=== PATIENT | female | born 1945 | race Asian ===

== ENCOUNTER → 2018-07-16 | Outpatient (CLI) | payer MEDICARE, OTHER ==
[~2018-07-16] MED LIST: ASPIRIN; DIPH-654 PO; ESOM20CA31 PO; HYDR-3965 PO; METO50 PO; NIFE60TA21 PO; TRAMADOL; VITAMIN C; VITAMIN D3; VITAMIN E
== END | disposition home or self-care (01) ==
LOC: RADPV 08:51
PROVIDERS: ATTEND Family Medicine
DX: S92.355A Nondisplaced fracture of fifth metatarsal bone, left foot, initial encounter for closed fracture (principal); M19.072 Primary osteoarthritis, left ankle and foot; M77.32 Calcaneal spur, left foot; M19.012 Primary osteoarthritis, left shoulder; M16.0 Bilateral primary osteoarthritis of hip; M47.816 Spondylosis without myelopathy or radiculopathy, lumbar region; M47.817 Spondylosis without myelopathy or radiculopathy, lumbosacral region; X58.XXXA Exposure to other specified factors, initial encounter; Y93.89 Activity, other specified; Y92.89 Other specified places as the place of occurrence of the external cause; Y99.8 Other external cause status
CPT/HCPCS: 72100; 73503

== ENCOUNTER → 2018-07-31 | Outpatient (CLI) | payer MEDICARE, OTHER | END | disposition home or self-care (01) | LOC: RADPV 07:53 | PROVIDERS: ATTEND Family Medicine | DX: M79.605 Pain in left leg (principal) | CPT/HCPCS: 93925; 93970 ==

== ENCOUNTER 2020-03-02 06:08 | Day surgery (SDC) | payer MEDICARE, OTHER ==
[2020-03-01 10:12] LABS: COVID AG,FIA SOURCE NASOPHARYNGEAL
[~2020-03-02] VITALS: Ht 154.9 cm; Wt 63.6 kg
[~2020-03-02 06:08] MED LIST changes: +ACET-3407 PO; +ASCO500 PO; +ASPI-1111 PO; -ASPIRIN; +CHOL100018 PO; +DICL2.5D8 OU; -DIPH-654 PO; +FURO20TA4 PO; -HYDR-3965 PO; +LIDO700A15 TP; +MOXIFLOXACIN HCL 0.5% 3 ML OPHTHALMIC SOLUTION ONE; -NIFE60TA21 PO; +NIFE60TA81 PO; +PHENYLEPHRINE HCL 2.5% 2 ML OPHTHALMIC SOLUTION ONE; +RINGERS SOLUTION,LACTATED 500 ML IV ONE; +TRAM50TA4 PO; -TRAMADOL; +TROPICAMIDE 1% 2 ML OPHTHALMIC SOLUTION ONE; +VITA100012 PO; -VITAMIN C; -VITAMIN D3; -VITAMIN E
[2020-03-02] MEDS ORDERED: POVIDONE-IODINE 10% 15 ML SOLUTION UD TP ONE (06:09)
[2020-03-02] MEDS ORDERED: BALANCED SALT 15 ML OPHTHALMIC IRRIG.SOLN OS ONE (06:09)
[2020-03-02] MEDS ORDERED: EPINEPHrine 1:1,000 [1 MG/ML] AMP IM ONE (06:09)
[2020-03-02] MEDS ORDERED: MIDAZOLAM HCL 2 MG/2 ML VIAL IVP ONE (06:09)
[2020-03-02] MEDS ORDERED: HYALURONATE SOD/CHONDROITIN SOD 0.5 ML VIAL IO ONE (06:09)
[2020-03-02] MEDS ORDERED: FentaNYL CITRATE-PF 100 MCG/2 ML VIAL IVP ONE (06:09)
[2020-03-02] MEDS ORDERED: HYALURONATE SODIUM 12 MG/ML 0.8 ML SYRINGE IO ONE (06:09)
[2020-03-02] MEDS ORDERED: KETOROLAC TROMETHAMINE 0.5% 5 ML OPHTHALMIC SOLUTION OS SCH (06:30)
[2020-03-02] MEDS: TROPICAMIDE 1% 2 ML OPHTHALMIC SOLUTION OS SCH ×3 (06:36→06:48)
[2020-03-02] MEDS: PHENYLEPHRINE HCL 2.5% 2 ML OPHTHALMIC SOLUTION OS SCH ×3 (06:36→06:48)
[2020-03-02] MEDS: MOXIFLOXACIN HCL 0.5% 3 ML OPHTHALMIC SOLUTION OS SCH ×3 (06:36→06:48)
== END 2020-03-02 10:10 | disposition home or self-care (01) ==
LOC: SURGERY 06:08
PROVIDERS: ATTEND Ophthalmology
DX: H25.12 Age-related nuclear cataract, left eye (principal); Z79.899 Other long term (current) drug therapy; I10 Essential (primary) hypertension; Z98.890 Other specified postprocedural states
CPT/HCPCS: 66984; 87426; 93005; C9803; J0171; J2250; J3010; J3490; J7120; V2632

== ENCOUNTER 2020-03-16 05:44 | Day surgery (SDC) | payer MEDICARE, OTHER ==
[2020-03-14 10:20] LABS: COVID AG,FIA SOURCE NASOPHARYNGEAL
[~2020-03-16] VITALS: Ht 154.9 cm; Wt 63.3 kg
[~2020-03-16 05:44] MED LIST changes: +KETOROLAC TROMETHAMINE 0.5% 5 ML OPHTHALMIC SOLUTION ONE
[2020-03-16] MEDS ORDERED: EPINEPHrine 1:1,000 [1 MG/ML] AMP ET ONE (05:45)
[2020-03-16] MEDS ORDERED: TETRACAINE HCL VISCOUS 0.5% 5 ML OPHTHALMIC SOLUTION OU ONE (05:45)
[2020-03-16] MEDS ORDERED: BALANCED SALT 15 ML OPHTHALMIC IRRIG.SOLN IO ONE (05:45)
[2020-03-16] MEDS ORDERED: MIDAZOLAM HCL 2 MG/2 ML VIAL IVP ONE (05:45)
[2020-03-16] MEDS ORDERED: HYALURONATE SODIUM 12 MG/ML 0.8 ML SYRINGE IO ONE (05:45)
[2020-03-16] MEDS ORDERED: POVIDONE-IODINE 10% 15 ML SOLUTION UD TP ONE (05:45)
[2020-03-16] MEDS ORDERED: FentaNYL CITRATE-PF 100 MCG/2 ML VIAL IVP ONE (05:45)
[2020-03-16] MEDS ORDERED: LIDOCAINE/PF 1% 2 ML VIAL IM ONE (05:45)
[2020-03-16] MEDS ORDERED: HYALURONATE SOD/CHONDROITIN SOD 0.5 ML VIAL IO ONE (05:45)
[2020-03-16] MEDS: TROPICAMIDE 1% 2 ML OPHTHALMIC SOLUTION OD SCH ×3 (06:31→06:51)
[2020-03-16] MEDS: MOXIFLOXACIN HCL 0.5% 3 ML OPHTHALMIC SOLUTION OD SCH ×3 (06:31→06:51)
[2020-03-16] MEDS: PHENYLEPHRINE HCL 2.5% 2 ML OPHTHALMIC SOLUTION OD SCH ×3 (06:32→06:51)
[2020-03-16] MEDS: KETOROLAC TROMETHAMINE 0.5% 5 ML OPHTHALMIC SOLUTION OD SCH ×3 (06:32→06:51)
[2020-03-16] MEDS ORDERED: ONDANSETRON HCL 4 MG TABLET PO ONE (09:30)
== END 2020-03-16 09:30 | disposition home or self-care (01) ==
LOC: SURGERY 05:44
PROVIDERS: ATTEND Ophthalmology
DX: H25.11 Age-related nuclear cataract, right eye (principal); I10 Essential (primary) hypertension; Z79.899 Other long term (current) drug therapy; Z20.828 Contact with and (suspected) exposure to other viral communicable diseases
CPT/HCPCS: 66984; 87426; 93005; C9803; J0171; J2250; J3010; J3490 ×2; J7120; V2632; Q0162

== ENCOUNTER → 2020-07-19 | Outpatient (CLI) | payer MEDICARE, OTHER ==
[~2020-07-19] MED LIST changes: -ASPI-1111 PO; +ASPI-1444 PO; -CHOL100018 PO; +CHOL100044 PO; -KETOROLAC TROMETHAMINE 0.5% 5 ML OPHTHALMIC SOLUTION ONE; -MOXIFLOXACIN HCL 0.5% 3 ML OPHTHALMIC SOLUTION ONE; -PHENYLEPHRINE HCL 2.5% 2 ML OPHTHALMIC SOLUTION ONE; -RINGERS SOLUTION,LACTATED 500 ML IV ONE; -TROPICAMIDE 1% 2 ML OPHTHALMIC SOLUTION ONE
== END | disposition home or self-care (01) ==
LOC: RADPV 09:54
PROVIDERS: ATTEND Family Medicine
DX: I80.293 Phlebitis and thrombophlebitis of other deep vessels of lower extremity, bilateral (principal)
CPT/HCPCS: 93925; 93970

== ENCOUNTER → 2020-09-12 | Outpatient (CLI) | payer MEDICARE, OTHER | END | disposition home or self-care (01) | LOC: RADMN 13:50 | PROVIDERS: ATTEND Family Medicine | DX: S83.231A Complex tear of medial meniscus, current injury, right knee, initial encounter (principal); S83.281A Other tear of lateral meniscus, current injury, right knee, initial encounter; S82.091A Other fracture of right patella, initial encounter for closed fracture; M25.461 Effusion, right knee; X58.XXXA Exposure to other specified factors, initial encounter; Y93.89 Activity, other specified; Y92.89 Other specified places as the place of occurrence of the external cause; Y99.8 Other external cause status | CPT/HCPCS: 73721 ==

== ENCOUNTER → 2021-03-06 | Outpatient (CLI) | payer MEDICARE, OTHER ==
[~2021-03-06] MED LIST changes: +CHOL-35 PO; -CHOL100044 PO
== END | disposition home or self-care (01) ==
LOC: RADPV 08:17
PROVIDERS: ATTEND Family Medicine
DX: M25.561 Pain in right knee (principal); M25.562 Pain in left knee
CPT/HCPCS: 93925; 93970

== ENCOUNTER → 2022-10-02 | Outpatient (CLI) | payer MEDICARE, OTHER ==
[~2022-10-02] MED LIST changes: -CHOL-35 PO; +CHOL25TA4 PO; +DICL2.5D7 OU; -DICL2.5D8 OU; +TRAM-559 PO; -TRAM50TA4 PO
== END | disposition home or self-care (01) ==
LOC: RADMN 12:23
PROVIDERS: ATTEND Family Medicine
DX: Z01.818 Encounter for other preprocedural examination (principal); M47.814 Spondylosis without myelopathy or radiculopathy, thoracic region
CPT/HCPCS: 71046

== ENCOUNTER → 2023-08-13 | Outpatient (CLI) | payer MEDICARE, OTHER ==
[~2023-08-13] MED LIST changes: +ACET-2247 PO; -ACET-3407 PO; -ASCO500 PO; +BISA10SU11 PR; -CHOL25TA4 PO; +CYCL-448 PO; +DAPT500V8 IV; -DICL2.5D7 OU; +DIPH-543 PO; -ESOM20CA31 PO; +GABA-1181 PO; +HEPA500018 SQ; +HYDR-4723 PO; +LACT1TAB20 PO; +LORA10TA7 PO; +LOSA-381 PO; +MAGN-169 PO; +MULT-413 PO; -NIFE60TA81 PO; +OMEP20 PO; +POLY17PO47 PO; +SENN-376 PO; +SPIR-37 PO; -TRAM-559 PO; -VITA100012 PO; +[UNRECOGNIZED DRUG - CODE] PO
[2023-08-13 09:41] LABS: BASOPHILS % (AUTO) 0.8 % (0.0-2.0); EOSINOPHILS % (AUTO) 3.5 % (1.0-6.0); HEMATOCRIT 30.4 % (36-46); LYMPHOCYTES # (AUTO) 1.2 K/uL (1.0-4.8); LYMPHOCYTES % (AUTO) 25.4 % (22.0-44.0); MEAN CORPUSCULAR VOLUME 97 fL (80-100); MONOCYTES # (AUTO) 0.5 K/uL (0.1-1.0); MONOCYTES % (AUTO) 9.3 % (2.0-9.0); PLATELET COUNT (AUTO) 278 K/uL (150-450); RED BLOOD CELL COUNT(AUTO) 3.13 MIL/uL (4.00-5.20); RED CELL DISTRIBUTION WIDTH 16.6 % (11.5-14.5); WHITE BLOOD COUNT (AUTO) 4.9 K/uL (4.5-11.0)
[2023-08-13 10:04] LABS: HEMOGLOBIN A1C 5.3 % (3.8-5.6)
[2023-08-13 10:05] LABS: ALANINE AMINOTRANSFERASE 16 U/L (12-78); ALBUMIN 2.9 g/dL (3.4-5.0); ALKALINE PHOSPHATASE 116 U/L (46-116); ANION GAP 8 mmol/L (8-16); ASPARTATE AMINOTRANSFERASE 23 U/L (15-37); BILIRUBIN,TOTAL 0.3 mg/dL (0.1-1.0); C-REACTIVE PROTEIN QUANT 0.51 mg/dL (0.00-0.30); CALCIUM, TOTAL 8.7 mg/dL (8.8-10.5); CARBON DIOXIDE 27 mmol/L (22-29); CHLORIDE 107 mmol/L (98-107); CHOLESTEROL 192 mg/dL (131-200); CREATININE 0.96 mg/dL (0.60-1.30); GLOMERULAR FILTR. RATE CALC 57 mL/min (>60); GLUCOSE,RANDOM 104 mg/dL (70-110); HDL CHOLESTEROL 65 mg/dL (40-60); LDL CHOL (CALC.) 95 mg/dL (0-130); POTASSIUM 4.3 mmol/L (3.5-5.1); SODIUM SERUM 142 mmol/L (136-145); THYROID STIMULATING HORMONE 2.89 uIU/mL (0.36-3.74); TOTAL PROTEIN, SERUM 7.4 g/dL (6.4-8.2); TRIGLYCERIDES 158 mg/dL (15-150); UREA NITROGEN, BLOOD 19 mg/dL (7-18)
[2023-08-13 10:16] LABS: URIC ACID 5.9 mg/dL (2.6-7.2)
[2023-08-13 10:43] LABS: ERYTHROCYTE SEDIMENTATION RATE 54 MM/HR (0-30)
== END | disposition home or self-care (01) ==
LOC: LABMN 09:09
PROVIDERS: ATTEND Family Medicine
DX: I10 Essential (primary) hypertension (principal); E78.5 Hyperlipidemia, unspecified; D64.9 Anemia, unspecified; R73.09 Other abnormal glucose; E66.9 Obesity, unspecified; Z86.19 Personal history of other infectious and parasitic diseases
CPT/HCPCS: 80053; 80061; 83036; 83605; 84443; 84550; 85025; 85651; 86140

== ENCOUNTER → 2023-09-26 | Outpatient (CLI) | payer MEDICARE, OTHER ==
[~2023-09-26] MED LIST changes: +HYDR-4062 PO; -HYDR-4723 PO
[2023-09-26 14:21] LABS: VITAMIN B12 LEVEL 740 pg/mL (211-911)
[2023-09-26 14:55] LABS: FOLATE SERUM > 24.0 ng/mL (5.4-)
== END | disposition home or self-care (01) ==
LOC: LABMN 13:20
PROVIDERS: ATTEND Family Medicine
DX: F03.90 Unspecified dementia, unspecified severity, without behavioral disturbance, psychotic disturbance, mood disturbance, and anxiety (principal)
CPT/HCPCS: 82607; 82746; 86592

== ENCOUNTER → 2023-12-25 | Outpatient (CLI) | payer MEDICARE, OTHER ==
[2023-12-25 15:11] LABS: BASOPHILS % (AUTO) 0.8 % (0.0-2.0); EOSINOPHILS % (AUTO) 5.5 % (1.0-6.0); HEMATOCRIT 32.1 % (36-46); HEMOGLOBIN 10.5 g/dL (12.0-16.0); LYMPHOCYTES # (AUTO) 1.6 K/uL (1.0-4.8); MEAN CORPUSCULAR HEMOGLOBIN 31.3 pg (26.0-34.0); MEAN CORPUSCULAR HGB CONC 32.7 G/dL (31.0-37.0); MEAN CORPUSCULAR VOLUME 96 fL (80-100); MONOCYTES # (AUTO) 0.4 K/uL (0.1-1.0); MONOCYTES % (AUTO) 10.4 % (2.0-9.0); NEUTROPHILS # (AUTO) 1.3 K/uL (1.8-7.7); NEUTROPHILS % (AUTO) 36.3 % (40.0-70.0); PLATELET COUNT (AUTO) 193 K/uL (150-450); RED BLOOD CELL COUNT(AUTO) 3.35 MIL/uL (4.00-5.20); RED CELL DISTRIBUTION WIDTH 15.2 % (11.5-14.5); WHITE BLOOD COUNT (AUTO) 3.5 K/uL (4.5-11.0)
[2023-12-25 15:40] LABS: ALBUMIN 3.6 g/dL (3.4-5.0); BILIRUBIN,TOTAL 0.5 mg/dL (0.1-1.0); CALCIUM, TOTAL 8.8 mg/dL (8.8-10.5); CREATININE 1.1 mg/dL (0.60-1.30); FREE T4 (FREE THYROXINE) 1.17 ng/dL (0.76-1.46); POTASSIUM 4.1 mmol/L (3.5-5.1); THYROID STIMULATING HORMONE 1.04 uIU/mL (0.36-3.74); TOTAL PROTEIN, SERUM 7.8 g/dL (6.4-8.2)
== END | disposition home or self-care (01) ==
LOC: LABMN 14:41
PROVIDERS: ATTEND Family Medicine
DX: R63.4 Abnormal weight loss (principal); R06.02 Shortness of breath; R63.0 Anorexia; E11.65 Type 2 diabetes mellitus with hyperglycemia; M12.1 Kaschin-Beck disease; M10.9 Gout, unspecified; I25.10 Atherosclerotic heart disease of native coronary artery without angina pectoris; D64.9 Anemia, unspecified; I11.0 Hypertensive heart disease with heart failure; I50.9 Heart failure, unspecified; R42 Dizziness and giddiness; R51.9 Headache, unspecified; E78.5 Hyperlipidemia, unspecified; E66.9 Obesity, unspecified; R55 Syncope and collapse; Z79.899 Other long term (current) drug therapy; Z79.82 Long term (current) use of aspirin; R05.9 Cough, unspecified
CPT/HCPCS: 71046; 80053; 80061; 82378; 84439; 84443; 85025; 86301; 86304; 36415-L1; 36415-TC

== ENCOUNTER 2024-05-02 16:23 | Emergency (ER) | payer MEDICARE, OTHER ==
[~2024-05-02] VITALS: Ht 152.4 cm; Wt 54.5 kg
[2024-05-02 16:31] VITALS: BP 146/50; PULSE 72; RESP 18; TEMP 98.2; O2SAT 99
[2024-05-02] MEDS ORDERED: MEMA10TA24 PO (16:41)
[2024-05-02] MEDS ORDERED: SERT-158 PO (16:41)
[2024-05-02] MEDS ORDERED: FOLI0.8T54 PO (16:41)
[2024-05-02] MEDS ORDERED: DONE-52 PO (16:41)
[2024-05-02] MEDS ORDERED: GABA-1216 PO (16:41)
[2024-05-02] MEDS ORDERED: TOLT2CAP PO (16:41)
[2024-05-02] MEDS ORDERED: MIRT-149 PO (16:41)
[2024-05-02] MEDS ORDERED: NIFE-141 PO (17:04)
== END 2024-05-02 20:30 | disposition left against medical advice (07) ==
LOC: EMS 16:23
DX: M79.602 Pain in left arm (principal); R09.81 Nasal congestion; Z53.21 Procedure and treatment not carried out due to patient leaving prior to being seen by health care provider
CPT/HCPCS: 71045; 99284